=== PATIENT | female | born 2005 | race Caucasian/White ===

== ENCOUNTER 2024-08-08 15:28 | Emergency (ER) | payer OTHER ==
[~2024-08-08] VITALS: Wt 170.1 kg
== END 2024-08-08 16:55 | disposition home or self-care (01) ==
LOC: ED 15:28
DX: L55.9 Sunburn, unspecified (principal)

== ENCOUNTER 2024-11-29 03:28 | Emergency (ER) | payer OTHER ==
[2024-11-29] MEDS ORDERED: PENICILLIN V POTASSIUM 500 MG TAB PO ONE (03:45)
[2024-11-29] MEDS ORDERED: PENICILLIN VK500 MG PO (03:45)
[2024-11-29] MEDS ORDERED: Acetaminophen/Hydrocodone 5 MG/325 MG TABLET PO ONE (03:45)
[2024-11-29] MEDS ORDERED: Ondansetron Hydrochloride 4 MG TAB SL ONE (03:45)
== END 2024-11-29 04:00 | disposition home or self-care (01) ==
LOC: ED 03:28
DX: K02.9 Dental caries, unspecified (principal)